=== PATIENT | female | born 1975 | race Two or more races ===

== ENCOUNTER 2018-11-05 13:06 | Emergency (ER) | payer SELFPAY ==
[2018-11-05 13:08] VITALS: BP 119/71; PULSE 72; RESP 18; TEMP 36.6; O2SAT 100; BMI 25.4
--- NOTE | 2018-11-05 14:09 | RAD_ITS ---
STUDY: X-RAY - RIGHT SHOULDER REASON FOR EXAM: Shoulder pain, fall. TECHNIQUE: 2 view(s) of the shoulder. COMPARISON: None. FINDINGS: Normal glenohumeral articulation. Normal acromioclavicular joint. Normal acromion. There is a nondisplaced fracture of the surgical neck and greater tuberosity. The soft tissue structures are unremarkable. Normal visualized pulmonary apex. RAD/Shoulder min 2 Views IMPRESSION: Proximal humeral fracture. Electronically Signed: Alex Guillermo MD at 15:05 EST Tel , Service support ,
--- NOTE | 2018-11-05 14:09 | RAD_ITS ---
STUDY: X-RAY - RIGHT HUMERUS REASON FOR EXAM: Shoulder pain, fall. TECHNIQUE: 2 view(s) of the humerus. COMPARISON: None. FINDINGS: There is a nondisplaced fracture of the surgical neck and greater tuberosity. There is no demonstrated soft tissue abnormality. RAD/Humerus min 2 Views IMPRESSION: Proximal humeral fracture. Electronically Signed: Alex Guillermo MD at 15:04 EST Tel , Service support ,
--- NOTE | 2018-11-05 14:10 | ED.VISSUMM ---
- ER Visit Summary Date of Service: 11/05/18 Chief Complaint: Right shoulder and upper arm pain History of Present Illness: The patient is a 43 F past medical history of hypertension. Patient is from [place] but she is visiting our area. Today she was ice skating with her children when she fell and injured her right shoulder and upper arm. Denies hitting her head. Denies any LOC. Denies any neck pain. Denies any other injuries. She is right-hand dominant. She is never had any surgery to her right upper extremity or shoulder. She states the pain is primarily with trying to move the right shoulder. Physical Examination: Middle-aged female no acute distress. Vital signs are stable and afebrile. HEENT exam face is atraumatic. Scalp is nontender and atraumatic. Pupils round reactive light. No signs of trauma whatsoever to her face or scalp. C-spine nontender. Trachea midline. Normal range of motion to her neck. Lungs clear to auscultation bilaterally. Heart regular rate and rhythm no murmur. Chest wall nontender. Abdomen is soft and nontender. Normal bowel sounds. No peritoneal signs. Pelvic girdle is intact and nontender. There is no shortening or external rotation of either hip. She has normal range of motion of the left upper extremity which is also nontender and has normal dialysis patient care technician strength. She has normal range of motion of both lower extremities with dorsi and plantar flexion. Flexion-extension of both hips and knees. And nontender. The right shoulder is tender and has worse pain with attempting range of motion. The right elbow, forearm, wrist and hand are nontender neurovascular intact. He is a palpable radial pulse. Normal dialysis patient care technician strength. Normal sensation. She can do range of motion with the hand, the right wrist and the right elbow. Test Results: Right shoulder x-ray shows fractured right proximal humerus about the surgical neck. Right humerus x-ray shows fracture of the right proximal humerus about the surgical neck. Read by myself. Emergency Department Course and Treatment: Sling. Treatment Plan: I went over the x-ray results with patient. [place] for pain 20 no refill. Call follow-up with Dr. Andre Nicholson of orthopedics. Disposition: dc Impression: Fall ice skating Right shoulder external humerus fracture This note was generated with MobileMDation software. It may contain incorrect words, spelling, and punctuation that were not noted in review of the chart prior to signing ED Disposition - Plan for ED Patient: Chief Complaint: Upper Extremity Injury Referrals: [facility] Doctor,Out of [Primary Care Provider] -
--- NOTE | 2018-11-05 14:13 | ED.DCSUM_ITS ---
- ER Visit Summary Date of Service: 11/05/18 Chief Complaint: Right shoulder and upper arm pain History of Present Illness: The patient is a 43 F past medical history of hypertension. Patient is from [place] but she is visiting our area. Today she was ice skating with her children when she fell and injured her right shoulder and upper arm. Denies hitting her head. Denies any LOC. Denies any neck pain. Denies any other injuries. She is right-hand dominant. She is never had any surgery to her right upper extremity or shoulder. She states the pain is primarily with trying to move the right shoulder. Physical Examination: Middle-aged female no acute distress. Vital signs are stable and afebrile. HEENT exam face is atraumatic. Scalp is nontender and atraumatic. Pupils round reactive light. No signs of trauma whatsoever to her face or scalp. C-spine nontender. Trachea midline. Normal range of motion to her neck. Lungs clear to auscultation bilaterally. Heart regular rate and rhythm no murmur. Chest wall nontender. Abdomen is soft and nontender. Normal bowel sounds. No peritoneal signs. Pelvic girdle is intact and nontender. There is no shortening or external rotation of either hip. She has normal range of motion of the left upper extremity which is also nontender and has normal [employer] strength. She has normal range of motion of both lower extremities with dorsi and plantar flexion. Flexion-extension of both hips and knees. And nontender. The right shoulder is tender and has worse pain with attempting range of motion. The right elbow, forearm, wrist and hand are nontender neurovascular intact. He is a palpable radial pulse. Normal [employer] strength. Normal sensation. She can do range of motion with the hand, the right wrist and the right elbow. Test Results: Right shoulder x-ray shows fractured right proximal humerus about the surgical neck. Right humerus x-ray shows fracture of the right proximal humerus about the surgical neck. Read by myself. Emergency Department Course and Treatment: Sling. Treatment Plan: I went over the x-ray results with patient. [place] for pain 20 no refill. Call follow-up with Dr. Andre Nicholson of orthopedics. Disposition: dc Impression: Fall ice skating Right shoulder external humerus fracture This note was generated with IZI-collecteation software. It may contain incorrect words, spelling, and punctuation that were not noted in review of the chart prior to signing ED Disposition - Plan for ED Patient: Chief Complaint: Upper Extremity Injury Referrals: [facility] Doctor,Out of [Primary Care Provider] -
--- NOTE | 2018-11-05 14:38 | ED.DEP ---
ED Disposition - Plan for ED Patient: Disposition: Home or Assisted Living Chief Complaint: Upper Extremity Injury Instructions: ED Fx Shoulder Prescriptions: Hydrocodone/Acetaminophen [[place] 5-325 Tablet] 1 ea PO Q4H PRN PRN 4 Days #20 tab PRN Reason: Pain Referrals: Andre Nicholson DO [STAFF PHYSICIAN] - As soon as possible Additional Instructions: Ice to right shoulder. Sling to immobilize her shoulder. Motrin and limited [place] for pain. Call follow-up with an orthopedic surgeon of your choice.
--- NOTE | 2018-11-05 14:41 | DCINST.ED_ITS ---
ED Disposition - Plan for ED Patient: Disposition: Home or Assisted Living Chief Complaint: Upper Extremity Injury Instructions: ED Fx Shoulder Prescriptions: Hydrocodone/Acetaminophen [[place] 5-325 Tablet] 1 ea PO Q4H PRN PRN 4 Days #20 tab PRN Reason: Pain Referrals: Andre Nicholson DO [STAFF PHYSICIAN] - As soon as possible Additional Instructions: Ice to right shoulder. Sling to immobilize her shoulder. Motrin and limited [place] for pain. Call follow-up with an orthopedic surgeon of your choice.
--- OUTSIDE RECORDS SUMMARY | 2019-01-10 10:12 | XMS RPT_ITS ---
:1975 Author Organization [facility] Care Team Providers Name Role Phone Terrance Barr Attending Unavailable Primay Care Physicia, No Primary Care Unavailable PROBLEMS PROBLEMS DATE TYPE CONDITION / CODE ATTENDING STATUS SOURCE 11/05/2018 Unknown S42.90XA - Terrance Barr Active Lance Fracture of [facility] unspecified Hospital shoulder girdle, Repository part unspecified, initial encounter for closed fracture / S42.90XA(ICD-10) PROCEDURES PROCEDURES No Procedure Records FoundRESULTS RESULTS DISCHARGE INSTRUCTION Observed: 11/05/2018 Status: F Source: LANCE 4:04 PM [facility] REPOSITORY [facility] Medical Records Department [address] [place] [address] Discharge Instruction 11/05/18 1438 MR#: [id number] Acct: [id number] Name: CAPO SAMUEL Rep #: [id number] : 1975 43 From: Terrance Barr MD PCP: Care Physician, No Primary Status: DEP ER ED Disposition - Plan for ED Patient: Disposition: Home or Assisted Living Chief Complaint: Upper Extremity Injury Instructions: ED Fx Shoulder Prescriptions: Hydrocodone/Acetaminophen [[place] 5-325 Tablet] 1 ea PO Q4H PRN PRN 4 Days #20 tab PRN Reason: Pain Referrals: Andre Nicholson DO [STAFF PHYSICIAN] - As soon as possible Additional Instructions: Ice to right shoulder. Sling to immobilize her shoulder. Motrin and limited [place] for pain. Call follow-up with an orthopedic surgeon of your choice. What to do if you have Problems For any increased pain, shortness of breath, bleeding, nausea or vomiting, chest pain, or any unexpected problems, contact your Primary Care Provider. Call [facility] ([phone]) or report to the closest Emergency Room. Call 911 if necessary. 11/05/18 1604 <Electronically signed by Terrance Barr MD> Date Terrance Barr MD Cosigner Signature (If Indicated): Date CC: No Primary Care Physician EMERGENCY DEPARTMENT Observed: 11/05/2018 Status: F Source: ARTHUR SUMMARY 4:04 PM [facility] REPOSITORY [facility] Medical Records Department [address] [place] [address] Emergency Department Summary 11/05/18 1410 MR#: [id number] Acct: [id number] Name: CAPO SAMUEL Rep #: [id number] : 1975 43 From: Terrance Barr MD PCP: Care Physician, No Primary Status: DEP ER - ER Visit Summary Date of Service: 11/05/18 Chief Complaint: Right shoulder and upper arm pain History of Present Illness: The patient is a 43 F past medical history of hypertension. Patient is from [place] but she is visiting our area. Today she was ice skating with her children when she fell and injured her right shoulder and upper arm. Denies hitting her head. Denies any LOC. Denies any neck pain. Denies any other injuries. She is right-hand dominant. She is never had any surgery to her right upper extremity or shoulder. She states the pain is primarily with trying to move the right shoulder. Physical Examination: Middle-aged female no acute distress. Vital signs are stable and afebrile. HEENT exam face is atraumatic. Scalp is nontender and atraumatic. Pupils round reactive light. No signs of trauma whatsoever to her face or scalp. C-spine nontender. Trachea midline. Normal range of motion to her neck. Lungs clear to auscultation bilaterally. Heart regular rate and rhythm no murmur. Chest wall nontender. Abdomen is soft and nontender. Normal bowel sounds. No peritoneal signs. Pelvic girdle is intact and nontender. There is no shortening or external rotation of either hip. She has normal range of motion of the left upper extremity which is also nontender and has normal inpatient nursing aide strength. She has normal range of motion of both lower extremities with dorsi and plantar flexion. Flexion-extension of both hips and knees. And nontender. The right shoulder is tender and has worse pain with attempting range of motion. The right elbow, forearm, wrist and hand are nontender neurovascular intact. He is a palpable radial pulse. Normal inpatient nursing aide strength. Normal sensation. She can do range of motion with the hand, the right wrist and the right elbow. Test Results: Right shoulder x-ray shows fractured right proximal humerus about the surgical neck. Right humerus x-ray shows fracture of the right proximal humerus about the surgical neck. Read by myself. Emergency Department Course and Treatment: Sling. Treatment Plan: I went over the x-ray results with patient. [place] for pain 20 no refill. Call follow-up with Dr. Andre Nicholson of orthopedics. Disposition: dc Impression: Fall ice skating Right shoulder external humerus fracture This note was generated with [employer] dictation software. It may contain incorrect words, spelling, and punctuation that were not noted in review of the chart prior to signing ED Disposition - Plan for ED Patient: Chief Complaint: Upper Extremity Injury Referrals: [facility] Doctor,Out of [Primary Care Provider] - What to do if you have Problems For any increased pain, shortness of breath, bleeding, nausea or vomiting, chest pain, or any unexpected problems, contact your Primary Care Provider. Call [facility] ([phone]) or report to the closest Emergency Room. Call 911 if necessary. 11/05/18 6478 <Electronically signed by Terrance Barr MD> Date Terrance Barr MD Cosigner Signature (If Indicated): Date CC: No Primary Care Physician HUMERUS MIN 2 VIEWS Observed: 11/05/2018 Status: F Source: LANCE 2:09 PM [facility] REPOSITORY [facility] Imaging Services [address] [place] [address] Humerus min 2 Views MR#: [id number] Acct: [id number] Name: CAPO SAMUEL Rep #: [id number] : 1975 F 43 From: Alex Guillermo MD PCP: Care Physician, No Primary Status: REG ER Study: Humerus min 2 Views Date of Exam: 11/05/18 Exam# [id number] Ordering Dr: Terrance Barr MD STUDY: X-RAY - RIGHT HUMERUS REASON FOR EXAM: Shoulder pain, fall. TECHNIQUE: 2 view(s) of the humerus. COMPARISON: None. FINDINGS: There is a nondisplaced fracture of the surgical neck and greater tuberosity. There is no demonstrated soft tissue abnormality. RAD/Humerus min 2 Views IMPRESSION: Proximal humeral fracture. Electronically Signed: Alex Guillermo MD at 15:04 EST Tel , Service support , CC: No Primary Care Physician; Terrance Barr MD Pediatric Orthodontist: Signed SHOULDER MIN 2 VIEWS Observed: 11/05/2018 Status: F Source: LANCE 2:09 PM [facility] H[facility]PITAL REPOSITORY [facility] Imaging Services [address] [place] [address] Shoulder min 2 Views MR#: [id number] Acct: [id number] Name: CAPO SAMUEL Rep #: [id number] : 1975 F 43 From: Alex Guillermo MD PCP: Care Physician, No Primary Status: REG ER Study: Shoulder min 2 Views Date of Exam: 11/05/18 Exam# [id number] Ordering Dr: Terrance Barr MD STUDY: X-RAY - RIGHT SHOULDER REASON FOR EXAM: Shoulder pain, fall. TECHNIQUE: 2 view(s) of the shoulder. COMPARISON: None. FINDINGS: Normal glenohumeral articulation. Normal acromioclavicular joint. Normal acromion. There is a nondisplaced fracture of the surgical neck and greater tuberosity. The soft tissue structures are unremarkable. Normal visualized pulmonary apex. RAD/Shoulder min 2 Views IMPRESSION: Proximal humeral fracture. Electronically Signed: Alex Guillermo MD at 15:05 EST Tel , Service support , CC: No Primary Care Physician; Terrance Barr MD Pediatric Orthodontist: Signed ALLERGIES ALLERGIES DATE TYPE / CODE NAME / CODE REACTION SEVERITY SOURCE 11/05/2018 Drug No Known Unknown [facility] Allergy/4160 Allergies/F00 [facility] [address]957(SNOMED [id number](RXNOR Repository CT) M) ENCOUNTERS ENCOUNTERS ADMIT/DISCHARGE ACCOUNT ADMITTING ENCOUNTER LOCATION SOURCE NUMBER CLASS 11/05/2018/ [id number] Emergency Lance Lance 9 [facility] ing:ED Repository PAYERS PAYERS ENCOUNTER GUARANTOR PAYER SUBSCRIBER SOURCE 11/05/2018 WILMAN [id number] Primary NOT GIVENUNK [facility] Insurance:SELF PAY [facility] MAIK [facility] [id number]: [phone] Number: Effective Repository [phone] () Date:2018-11-05
== END 2018-11-05 15:30 | disposition home or self-care (01) ==
LOC: ED 14:57
PROVIDERS: Emergency Provider Emergency Medicine
DX: S42.254A Nondisplaced fracture of greater tuberosity of right humerus, initial encounter for closed fracture (principal); S42.214A Unspecified nondisplaced fracture of surgical neck of right humerus, initial encounter for closed fracture; V00.211A Fall from ice-skates, initial encounter; Y93.21 Activity, ice skating; Y92.9 Unspecified place or not applicable; Y99.8 Other external cause status; I10 Essential (primary) hypertension
CPT/HCPCS: 73030; 73060; 99283